=== PATIENT | male | born 1950 | race Caucasian/White ===

== ENCOUNTER 2020-12-23 11:46 | Emergency (ER) | payer SELFPAY ==
[2020-12-23] VITALS (13 sets, daily range): BP systolic 120–161; BP diastolic 68–90; PULSE 64–87; RESP 11–37; TEMP 36.3; O2SAT 95–100; BMI 20.1
[2020-12-23 12:28] LABS: Add Manual Diff / Slide Review NO; Basophils Absolute Auto 100 /uL (0-100); Basophils Percent Auto 1.2 % (0-2); Eosinophils Absolute Auto 400 /uL (0-450); Eosinophils Percent Auto 4.1 % (2-4); Hematocrit 43.3 % (41-53); Hemoglobin 14.7 g/dL (13.5-17.5); Lymphocytes Absolute Auto 3100 /uL (1100-4500); Lymphocytes Percent Auto 33.7 % (25-40); Mean Corpuscular HGB Conc 33.9 % (30-36); Mean Corpuscular Hemoglobin 31.8 PG (26-34); Mean Corpuscular Volume 93.8 fL (80-100); Monocytes Absolute Auto 600 /uL (0-900); Monocytes Percent Auto 6.3 % (3-14); Neutrophils Absolute Auto 5100 /uL (1500-7000); Neutrophils Percent Auto 54.7 % (50-75); Platelet Count 319 X10^3/uL (150-400); Red Blood Cell Count 4.62 X10^6/uL (4.5-5.9); Red Cell Distribution Width 13.6 % (11.6-14.8); White Blood Cell Count 9.3 X10^3/uL (4.5-11.0)
[2020-12-23 12:52] LABS: Lactate (Lactic Acid) 1.4 mmol/L (0.7-2.1)
[2020-12-23 12:53] LABS: Alanine Aminotransferase 21 IU/L (<50); Albumin 4.1 g/dL (3.5-5.0); Albumin Globulin Ratio 1.3 (1.0-2.8); Alkaline Phosphatase 123 U/L (38-126); Aspartate Aminotransferase 41 IU/L (17-59); BUN Creatinine Ratio 20.5 (6-22); Bilirubin Total 0.7 mg/dL (0.2-1.3); Blood Urea Nitrogen 16 mg/dL (9-20); Calcium 9.1 mg/dL (8.4-10.2); Carbon Dioxide 26 mmol/L (22-32); Chloride 110 mmol/L (98-107); Estimated Glomerular Filt Rate > 60.0 mL/min (>60); Globulin 3.1 g/dL (1.7-4.1); Glucose 88 mg/dL (80-110); HEMOLYSIS < 15 (0-50); Lipase 91 U/L (23-300); Potassium 4.1 mmol/L (3.4-5.1); Sodium 140 mmol/L (137-145); Total Protein 7.2 g/dL (6.3-8.2)
--- NOTE | 2020-12-23 12:53 | DI.CT.S_ITS ---
PROCEDURE: CT ABDOMEN PELVIS W CON INDICATIONS: RLQ pain, R scrotal swelling TECHNIQUE: After the administration of intravenous contrast, axial sections acquired from the lung bases to the pubic symphysis. Coronal and sagittal reformats were performed. For radiation dose reduction, the following was used: automated exposure control, adjustment of mA and/or kV according to patient size. COMPARISON: None. FINDINGS: Image quality: Excellent. Lung bases: Unremarkable. Heart: No significant findings. ABDOMEN: Liver: Unremarkable. Gallbladder: Unremarkable. Biliary ducts: Unremarkable. Pancreas: Unremarkable. Spleen: Unremarkable. Adrenal Glands: Unremarkable. Kidneys and Ureters: Unremarkable. Stomach and Bowel: Portions of the colon are underdistended. Normal appendix. No signs of small bowel obstruction. A loop of small bowel in the right lower quadrant partially extends into a right inguinal hernia. Peritoneum: No abnormal intraperitoneal fluid. No free air. Ventral Wall: No hernias. Abdominal Nodes: No retroperitoneal or mesenteric adenopathy by size criteria. Vessels: Aorta and inferior vena cava are normal in size. PELVIS: Pelvic Organs: Unremarkable. Bladder: Unremarkable. Pelvic Nodes: No enlarged lymph nodes. Miscellaneous: There is a small left inguinal hernia. A large right inguinal hernia is seen measuring approximately 6.7 x 5.3 x 13.8 cm, which predominantly contains fat as well as a single loop of small bowel without signs of bowel obstruction. The hernia extends into the right scrotum. There is a small right scrotal hydrocele. Bones: There is narrowing of the ischial femoral distances bilaterally, which may predispose to ischial femoral impingement. However, no fatty infiltration of the quadratus femoris muscle is seen. Degenerative changes are seen in the included spine. There is grade 1-2 anterolisthesis of L5 on S1 secondary to bilateral spondylolysis of L5. IMPRESSION: 1. Large right inguinal hernia is seen extending into the right scrotum, which predominantly contains peritoneal fat although a single loop of small bowel partially extends into the abdominal wall defect. No signs of small bowel obstruction. 2. Small fat containing left inguinal hernia. 3. 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 Dictated by: Shay Saucedo M.D. on 12/23/2020 at 13:20 Approved by: Shay Saucedo M.D. on 12/23/2020 at 13:28
--- NOTE | 2020-12-23 12:57 | DI.US.S_ITS ---
PROCEDURE: US SCROTUM INDICATIONS: RIGHT SCROTAL SWELLING, PAIN TECHNIQUE: Real-time scanning was performed of the scrotum and testicles, with image documentation. Color and pulse Doppler interrogation was performed of both testicles. COMPARISON: [facility], CT, CT ABDOMEN PELVIS W CON, 12/23/2020, 13:11. FINDINGS: Right: Testicle is normal in size at 4.5 x 2.2 x 4.3 cm, and homogenous in echotexture. Epididymis is normal in overall size and morphology. No hydrocele or varicoceles. Overlying scrotal skin is normal in thickness. Left: Testicle is normal in size at 4.8 x 2.3 x 2.5 cm, and homogeneous in echotexture. Epididymis is normal in overall size and morphology. No hydrocele or varicoceles. Overlying scrotal skin is normal in thickness. Doppler: Color and pulse Doppler demonstrate normal and symmetric arterial flow in both testicles. A prominent fat containing hernia is seen on the right side. IMPRESSION: Normal appearing testicles, with normal appearing vascularity. Prominent fat containing right inguinal hernia, as seen on the prior CT. Dictated by: Ton Prakash M.D. on 12/23/2020 at 12:50 Approved by: Ton Prakash M.D. on 12/23/2020 at 12:51
[2020-12-23] MEDS: MORPHINE 4 MG/ML INJ IV ×2 (12:58→17:02)
[2020-12-23] MEDS: ONDANSETRON 4 MG/2 ML INJ IV (12:59)
--- NOTE | 2020-12-23 13:18 | ED_ITS ---
HPI - Abdominal Pain <Jo Ann Jones PA-C - Last Filed: 12/23/20 17:31> General Chief Complaint: Abdominal Pain Stated Complaint: Severe abdom pain, hernia related. Time Seen by Provider: 12/23/20 12:24 Source: patient Mode of arrival: Ambulatory Limitations: no limitations History of Present Illness HPI narrative: 70-year-old male with no reported past medical history presents to the ED with 4 months of right lower abdominal pain. Patient reports that the pain has worsened over the last 2 weeks. Patient endorses a lump in the right lower quadrant of his abdomen and right-sided scrotal swelling. Patient endorses significant nausea, chills, abdominal pain, groin pain, bloody diarrhea, shortness of breath, lightheadedness, fatigue. Patient also endorses 30 lb unintentional weight loss over the last 3-4 months. Patient endorses eating and drinking normally with no changes to diet or activity. Patient denies fever, chest pain, cough, vomiting, dysuria, urgency, frequency, syncope. Patient reports that he has not seen a doctor in several years, has only seen a doctor 2 times in the last 50 years. Patient also endorses taking for aspirin pills daily until 3 months ago for his a fever, which he has been taking since age 10. Patient states that he does lift a lot a heavy weights as part of his work, which seems to have exacerbated his symptoms. Patient is a daily smoker for the past several years. Related Data Home Medications Medication Instructions Recorded Confirmed No Known Home Medications 12/23/20 12/23/20 Allergies Allergy/AdvReac Type Severity Reaction Status Date / Time No Known Drug Allergies Allergy Verified 12/23/20 12:11 Review of Systems <Jo Ann Jones PA-C - Last Filed: 12/23/20 17:31> Constitutional Constitutional: Reports chills, Reports fatigue, Denies fever(s), Denies frequent falls, Denies lethargy, Denies weakness and Reports weight loss Comments: 30 lb unintentional weight loss in the last 3-4 months Eyes Eyes: Denies change in vision, Denies eye discharge, Denies irritation and Denies loss of vision ENT Ears, Nose, Mouth, and Throat: Denies change in voice, Denies dizziness, Denies neck pain, Denies sore throat and Denies throat swelling Cardiovascular Cardiovascular: Denies chest pain, Denies irregular heart rhythm, Reports lightheadedness, Denies palpitations, Reports dyspnea, Denies dyspnea on exertion and Denies orthopnea Respiratory Respiratory: Denies cough, Reports dyspnea, Denies dyspnea on exertion and Denies wheezing Gastrointestinal Gastrointestinal: Reports abdominal pain, Reports hematochezia, Denies change in bowel habits, Reports diarrhea, Reports nausea and Denies vomiting Genitourinary Genitourinary: Denies dysuria, Reports scrotal swelling, Denies urinary frequency, Denies urinary hesitancy, Denies urinary incontinence and Denies urinary urgency Musculoskeletal Musculoskeletal: Denies neck pain and Denies numbness Integumentary/Breasts Skin/Breast: Denies pruritus, Denies erythema, Denies rash and Denies wounds Neurologic Neurologic: Denies behavioral changes, Denies confusion, Denies dizziness, D enies frequent falls, Denies loss of vision, Denies numbness and Denies weakness Psychiatric Psychiatric: Denies anxiety, Denies behavioral changes, Denies confusion, Denies depression, Denies homicidal ideation and Denies suicidal ideation Endocrine Endocrine: Reports fatigue, Denies flushing and Denies palpitations Hematologic/Lymphatic Hematologic/Lymphatic: Denies easy bruising Allergic/Immunologic Allergic/Immunologic: Denies urticaria, Denies throat swelling and Denies wheezing Patient History <Jo Ann Jones PA-C - Last Filed: 12/23/20 17:31> Social History Smoking Status: Current every day smoker Smoking Status: Current every day smoker alcohol intake frequency: 3 or more drinks per day Substance Use Type: marijuana Exam <Jo Ann Jones PA-C - Last Filed: 12/23/20 17:31> Initial Vital Signs Initial Vital Signs: Vital Signs Temperature 97.4 F L 12/23/20 12:05 Pulse Rate 87 12/23/20 12:05 Respiratory Rate 18 12/23/20 12:05 Blood Pressure 161/88 H 12/23/20 12:05 Pulse Oximetry 100 12/23/20 12:05 Const General: cooperative Nutritional Appearance: cachectic and underweight Other: Cachectic appearing HENMT Head: normocephalic and atraumatic Ears: external ears normal and TM's normal bilaterally Nose: external nose normal and No nasal discharge Face and sinus: sinuses nontender, face symmetric, no sinus tenderness and No dry mucous membranes Mouth: oral mucosae normal and moist mucous membranes Teeth and gingiva: dentition normal Throat: tonsils normal and uvula midline Eyes General: appearance normal, both eyes and all related structures Eyelids: eyelids normal Conjunctivae: conjunctivae normal Sclera: sclerae normal Pupils: PERRL EOM: EOM intact bilaterally Neck Neck: normal visual inspection, trachea midline, No lymphadenopathy, No midline deformity and No JVD Lymphatic: No lymphedema Chest Chest: normal inspection of the chest Resp Effort & Inspection: normal respiratory effort, able to speak in complete sen tences, no respiratory distress and no use of accessory muscles Auscultation: clear to auscultation bilaterally, no rales, no rhonchi and no wheezes Cardio Rate: regular rate Rhythm: regular rhythm Heart Sounds: no click, no gallops, no murmurs and no rubs Pulses: normal peripheral pulses GI Inspection: non-distended Palpation: soft, no hepatosplenomegaly, No guarding, No pulsatile mass and No tender Auscultation: normal bowel sounds Other: Right lower quadrant tender to palpation. Right-sided scrotal swelling, consistent with inguinal hernia. Back/Spine/Pelvis Back: No CVA tenderness Cervical Spine: cervical ROM normal and No pain with cervical ROM Thoracic/Lumbar Spine: thoracic and lumbar spine normal to inspection Skin General: no rashes or lesions noted, No jaundice and No petechiae Neuro General: patient alert, patient oriented x3, gait normal and no focal motor deficits Speech: speech normal Extrem General: full ROM, no clubbing, cyanosis or edema, no pedal edema and no calf tenderness Psych Appearance: well kempt Mental Status: mental status grossly normal Attitude: cooperative Thought Content: normal and suicidality Judgment: judgment good <Carson Mireles DO - Last Filed: 12/23/20 17:34> Initial Vital Signs Initial Vital Signs: Vital Signs Temperature 97.4 F L 12/23/20 12:05 Pulse Rate 87 12/23/20 12:05 Respiratory Rate 18 12/23/20 12:05 Blood Pressure 161/88 H 12/23/20 12:05 Pulse Oximetry 100 12/23/20 12:05 Procedures <Jo Ann Jones PA-C - Last Filed: 12/23/20 17:31> [facility] Procedure Name of Procedure: Hernia reduction Side (if applicable): right Location: Inguinal hernia Technique/Description of procedure performed: Manual reduction attempted following icing, Trendelenburg positioning, morphine and Ativan for pain control. The hernia was not successfully reduced. Patient tolerated the procedure well. Patient tolerated procedure: Well Additional Comments: Surgeon Dr. Mujica was consulted. Course <Jo Ann Jones PA-C - Last Filed: 12/23/20 17:31> Course Course Narrative: Patient's CT abdomen pelvis shows evidence of a large right- sided non strangulated, non incarcerated, fat containing, hernia. Patient was given morphine, Ativan for pain control, set in the Trendelenburg position with eyes. Hernia reduction was attempted, however unsuccessful at reducing the hernia. Patient tolerated the procedure well. Surgeon Dr. Mujica was consulted, who recommends discharging home with pain control, outpatient appointment with [facility] for follow-up elective surgery. Will discharge home with ED return precautions. Orders Ordered: ED Orders 12/23/20 12:12 EKG-12 Lead Stat 12/23/20 12:20 Complete Blood Count AUTO DIFF Stat Comprehensive Metabolic Panel Stat Lactate (Lactic Acid) Stat Lipase Stat NT-proBNP (BNP-Adult 18+) Stat Troponin & CK Cardiac Panel Stat Type and Screen Stat 12/23/20 12:53 CT abdomen pelvis w con Stat 12/23/20 12:57 US scrotum Stat 12/23/20 14:06 CT chest w con Stat Discontinued Medications Lorazepam (Lorazepam 2 Mg/Ml Inj) 1 mg IV NOW ONE Stop: 12/23/20 16:08 Last Admin: 12/23/20 16:16 Dose: 1 mg Documented by: RENATE Morphine Sulfate (Morphine 4 Mg/Ml Inj) 4 mg IV NOW ONE Stop: 12/23/20 12:52 Last Admin: 12/23/20 12:58 Dose: 4 mg Documented by: RENATE Morphine Sulfate (Morphine 4 Mg/Ml Inj) 4 mg IV NOW ONE Stop: 12/23/20 16:43 Last Admin: 12/23/20 17:02 Dose: 4 mg Documented by: RENATE Ondansetron HCl (Ondansetron 4 Mg/2 Ml Inj) 4 mg IV NOW ONE Stop: 12/23/20 12:52 Last Admin: 12/23/20 12:59 Dose: 4 mg Documented by: RENATE Vital Signs Vital signs: Vital Signs - 8 hr 12/23/20 12:05 12/23/20 13:04 12/23/20 13:18 Temperature 97.4 F L Pulse Rate 87 78 81 Respiratory Rate 18 30 H 22 Blood Pressure 161/88 H 133/82 Pulse Oximetry 100 97 98 12/23/20 13:30 12/23/20 14:00 12/23/20 14:01 Temperature Pulse Rate 74 78 72 Respiratory Rate 35 H 24 33 H Blood Pressure 120/68 128/84 Pulse Oximetry 97 98 97 12/23/20 14:29 12/23/20 14:30 12/23/20 15:00 Temperature Pulse Rate 78 68 72 Respiratory Rate 23 11 L 17 Blood Pressure 137/82 135/80 141/83 H Pulse Oximetry 98 99 98 12/23/20 15:30 12/23/20 16:00 12/23/20 16:30 Temperature Pulse Rate 72 64 80 Respiratory Rate 32 H 37 H 22 Blood Pressure 143/90 H 131/83 142/89 H Pulse Oximetry 99 100 98 12/23/20 17:00 Temperature Pulse Rate 86 Respiratory Rate 24 Blood Pressure 132/83 Pulse Oximetry 95 <Carson Mireles, DO - Last Filed: 12/23/20 17:34> Orders Ordered: ED Orders 12/23/20 12:12 EKG-12 Lead Stat 12/23/20 12:20 Complete Blood Count AUTO DIFF Stat Comprehensive Metabolic Panel Stat Lactate (Lactic Acid) Stat Lipase Stat NT-proBNP (BNP-Adult 18+) Stat Troponin & CK Cardiac Panel Stat Type and Screen Stat 12/23/20 12:53 CT abdomen pelvis w con Stat 12/23/20 12:57 US scrotum Stat 12/23/20 14:06 CT chest w con Stat Discontinued Medications Lorazepam (Lorazepam 2 Mg/Ml Inj) 1 mg IV NOW ONE Stop: 12/23/20 16:08 Last Admin: 12/23/20 16:16 Dose: 1 mg Documented by: RENATE Morphine Sulfate (Morphine 4 Mg/Ml Inj) 4 mg IV NOW ONE Stop: 12/23/20 12:52 Last Admin: 12/23/20 12:58 Dose: 4 mg Documented by: RENATE Morphine Sulfate (Morphine 4 Mg/Ml Inj) 4 mg IV NOW ONE Stop: 12/23/20 16:43 Last Admin: 12/23/20 17:02 Dose: 4 mg Documented by: RENATE Ondansetron HCl (Ondansetron 4 Mg/2 Ml Inj) 4 mg IV NOW ONE Stop: 12/23/20 12:52 Last Admin: 12/23/20 12:59 Dose: 4 mg Documented by: RENATE Vital Signs Vital signs: Vital Signs - 8 hr 12/23/20 12:05 12/23/20 13:04 12/23/20 13:18 Temperature 97.4 F L Pulse Rate 87 78 81 Respiratory Rate 18 30 H 22 Blood Pressure 161/88 H 133/82 Pulse Oximetry 100 97 98 12/23/20 13:30 12/23/20 14:00 12/23/20 14:01 Temperature Pulse Rate 74 78 72 Respiratory Rate 35 H 24 33 H Blood Pressure 120/68 128/84 Pulse Oximetry 97 98 97 12/23/20 14:29 12/23/20 14:30 12/23/20 15:00 Temperature Pulse Rate 78 68 72 Respiratory Rate 23 11 L 17 Blood Pressure 137/82 135/80 141/83 H Pulse Oximetry 98 99 98 12/23/20 15:30 12/23/20 16:00 12/23/20 16:30 Temperature Pulse Rate 72 64 80 Respiratory Rate 32 H 37 H 22 Blood Pressure 143/90 H 131/83 142/89 H Pulse Oximetry 99 100 98 12/23/20 17:00 Temperature Pulse Rate 86 Respiratory Rate 24 Blood Pressure 132/83 Pulse Oximetry 95 MDM - Abdominal Pain <Jo Ann Jones PA-C - Last Filed: 12/23/20 17:31> Lab Data Lab results narrative: Labs within normal limits Result diagrams: 12/23/20 12:20 12/23/20 12:20 Labs: Lab Results 12/23/20 12/23/20 12/23/20 Range/Units 12:20 12:20 12:20 WBC 9.3 (4.5-11.0) X10^3/uL RBC 4.62 (4.5-5.9) X10^6/uL Hgb 14.7 (13.5-17.5) g/dL Hct 43.3 (41-53) % MCV 93.8 (80-100) fL MCH 31.8 (26-34) PG MCHC 33.9 (30-36) % RDW 13.6 (11.6-14.8) % Plt Count 319 (150-400) X10^3/uL Neut % (Auto) 54.7 (50-75) % Lymph % (Auto) 33.7 (25-40) % [place] % (Auto) 6.3 (3-14) % Eos % (Auto) 4.1 H (2-4) % Baso % (Auto) 1.2 (0-2) % Neut # (Auto) 5100 (0299-7933) /uL Lymph # (Auto) 3100 (9820-6951) /uL [place] # (Auto) 600 (0-900) /uL Eos # (Auto) 400 (0-450) /uL Baso # (Auto) 100 (0-100) /uL Sodium 140 (137-145) mmol/L Potassium 4.1 (3.4-5.1) mmol/L Chloride 110 H (98-107) mmol/L Carbon Dioxide 26 (22-32) mmol/L BUN 16 (9-20) mg/dL Creatinine 0.78 (0.66-1.25) mg/dL Estimated GFR > 60.0 (>60) mL/min BUN/Creatinine Ratio 20.5 (6-22) Glucose 88 (80-110) mg/dL Lactate 1.4 (0.7-2.1) mmol/L Calcium 9.1 (8.4-10.2) mg/dL Total Bilirubin 0.7 (0.2-1.3) mg/dL AST 41 (17-59) IU/L ALT 21 (<50) IU/L Alkaline Phosphatase 123 (38-126) U/L Total Creatine Kinase (55-170) U/L CK-MB (CK-2) CK-MB (CK-2) Rel Index Troponin I (0.01-0.034) ng/mL NT-Pro-B Natriuret Pep (<125) pg/mL Total Protein 7.2 (6.3-8.2) g/dL Albumin 4.1 (3.5-5.0) g/dL Globulin 3.1 (1.7-4.1) g/dL Albumin/Globulin Ratio 1.3 (1.0-2.8) Lipase 91 (23-300) U/L Blood Type Antibody Screen 12/23/20 12/23/20 Range/Units 12:20 12:20 WBC (4.5-11.0) X10^3/uL RBC (4.5-5.9) X10^6/uL Hgb (13.5-17.5) g/dL Hct (41-53) % MCV (80-100) fL MCH (26-34) PG MCHC (30-36) % RDW (11.6-14.8) % Plt Count (150-400) X10^3/uL Neut % (Auto) (50-75) % Lymph % (Auto) (25-40) % [place] % (Auto) (3-14) % Eos % (Auto) (2-4) % Baso % (Auto) (0-2) % Neut # (Auto) (2912-5883) /uL Lymph # (Auto) (5764-4655) /uL [place] # (Auto) (0-900) /uL Eos # (Auto) (0-450) /uL Baso # (Auto) (0-100) /uL Sodium (137-145) mmol/L Potassium (3.4-5.1) mmol/L Chloride (98-107) mmol/L Carbon Dioxide (22-32) mmol/L BUN (9-20) mg/dL Creatinine (0.66-1.25) mg/dL Estimated GFR (>60) mL/min BUN/Creatinine Ratio (6-22) Glucose (80-110) mg/dL Lactate (0.7-2.1) mmol/L Calcium (8.4-10.2) mg/dL Total Bilirubin (0.2-1.3) mg/dL AST (17-59) IU/L ALT (<50) IU/L Alkaline Phosphatase (38-126) U/L Total Creatine Kinase 96 (55-170) U/L CK-MB (CK-2) TNP CK-MB (CK-2) Rel Index TNP Troponin I < 0.012 (0.01-0.034) ng/mL NT-Pro-B Natriuret Pep 49 (<125) pg/mL Total Protein (6.3-8.2) g/dL Albumin (3.5-5.0) g/dL Globulin (1.7-4.1) g/dL Albumin/Globulin Ratio (1.0-2.8) Lipase (23-300) U/L Blood Type O Negative Antibody Screen Negative Point of care testing: Urine Dip Bedside Urine Glucose Negative Bedside Urine Bilirubin - Negative Bedside Urine Ketone - Negative Urine Specific Mary D 1.010 Bedside Urine Occult Blood - Negative Bedside Urine pH 6.0 Bedside Urine Protein - Negative Bedside Urine Urobilinogen - Negative Bedside Urine Nitrite - Negative Bedside Urine Leukocytes - Negative Esterase Imaging Data CT scan - abdomen/pelvis: Radiologist's Impression: PROCEDURE:? CT ABDOMEN PELVIS W CON ? INDICATIONS:? RLQ pain, R scrotal swelling ? TECHNIQUE:? After the administration of intravenous contrast, axial sections acquired from the lung bases to the pubic symphysis.? Coronal and sagittal reformats were performed.? For radiation dose reduction, the following was used:? automated exposure control, adjustment of mA and/or kV according to patient size.? ? COMPARISON:? None. ? FINDINGS:? Image quality:? Excellent.? ? Lung bases:? Unremarkable. Heart:? No significant findings. ? ABDOMEN: Liver:? Unremarkable.? ? Gallbladder:? Unremarkable. Biliary ducts:? Unremarkable.? ? Pancreas:? Unremarkable.? ? Spleen:? Unremarkable.? ? Adrenal Glands:? Unremarkable.? ? Kidneys and Ureters:? Unremarkable.? ? ? Stomach and Bowel:? Portions of the colon are underdistended.? Normal appendix.? No signs of small bowel obstruction.? A loop of small bowel in the right lower quadrant partially extends into a right inguinal hernia.? Peritoneum:? No abnormal intraperitoneal fluid.? No free air.? ? Ventral Wall: ? No hernias.? Abdominal Nodes:? No retroperitoneal or mesenteric adenopathy by size criteria.? Vessels:? Aorta and inferior vena cava are normal in size.? ? PELVIS: Pelvic Organs:? Unremarkable.? ? Bladder:? Unremarkable.? ? Pelvic Nodes: No enlarged lymph nodes.? Miscellaneous:? There is a small left inguinal hernia.? A large right inguinal hernia is seen measuring approximately 6.7 x 5.3 x 13.8 cm, which predominantly contains fat as well as a single loop of small bowel without signs of bowel obstruction.? The hernia extends into the right scrotum.? There is a small right scrotal hydrocele. ? Bones:? There is narrowing of the ischial femoral distances bilaterally, which may predispose to ischial femoral impingement.? However, no fatty infiltration of the quadratus femoris muscle is seen.? Degenerative changes are seen in the included spine.? There is grade 1-2 anterolisthesis of L5 on S1 secondary to bilateral spondylolysis of L5. ? IMPRESSION:? 1. Large right inguinal hernia is seen extending into the right scrotum, which predominantly contains peritoneal fat although a single loop of small bowel partially extends into the abdominal wall defect.? No signs of small bowel obstruction. ? 2. Small fat containing left inguinal hernia. ? 3. 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 ? ? Dictated by: Shay Saucedo M.D. on 12/23/2020 at 13:20 ? ? Approved by: Shay Saucedo M.D. on 12/23/2020 at 13:28 ? US Scrotum: Radiologist's Impression: PROCEDURE:? US SCROTUM ? INDICATIONS:? RIGHT SCROTAL SWELLING, PAIN ? TECHNIQUE:? Real-time scanning was performed of the scrotum and testicles, with image documentation.? Color and pulse Doppler interrogation was performed of both testicles.? ? COMPARISON:? [facility], CT, CT ABDOMEN PELVIS W CON, 12/23/2020, 13:11. ? FINDINGS:? ? Right:? Testicle is normal in size at 4.5 x 2.2 x 4.3 cm, and homogenous in echotexture.? Epididymis is normal in overall size and morphology.? No hydrocele or varicoceles.? Overlying scrotal skin is normal in thickness.? ? Left:? Testicle is normal in size at 4.8 x 2.3 x 2.5 cm, and homogeneous in echotexture.? Epididymis is normal in overall size and morphology.? No hydrocele or varicoceles.? Overlying scrotal skin is normal in thickness.? ? Doppler:? Color and pulse Doppler demonstrate normal and symmetric arterial flow in both testicles.? ? A prominent fat containing hernia is seen on the right side. ? ? IMPRESSION:? Normal appearing testicles, with normal appearing vascularity. ? Prominent fat containing right inguinal hernia, as seen on the prior CT. ? ? Dictated by: Ton Prakash M.D. on 12/23/2020 at 12:50 ? ? Approved by: Ton Prakash M.D. on 12/23/2020 at 12:51 ? CT scan - chest: Radiologist's Impression: PROCEDURE:? CT CHEST W CON ? INDICATIONS:? SOB, 30 lb weght loss, smoker ? TECHNIQUE:? After the administration of intravenous contrast, 5 mm thick sections acquired from the pulmonary apices to the posterior costophrenic angles.? 1 mm axial lung, 5 mm thick coronal and sagittal reformats and 7 mm axial MIP were acquired.? For radiation dose reduction, the following was used:? automated exposure control, adjustment of mA and/or kV according to patient size.? ? COMPARISON:? [facility], CT, CT ABDOMEN PELVIS W CON, 12/23/2020, 13:11. ? FINDINGS:? Image quality:? Excellent.? ? Lungs and pleura:? 2 mm pulmonary nodule, right lower lobe, image 180/3.? No suspicious pulmonary nodules.? No acute air space opacities.? No pleural effusions or pneumothorax.? Central and peripheral airways are patent and normal in caliber.? ? Mediastinum:? Heart size is normal.? No pericardial effusion.? No mediastinal or hilar adenopathy by size criteria.? Thoracic aorta and central pulmonary arteries are normal in size.? Esophagus is normal in caliber.? No hiatal hernia.? ? Bones and chest wall:? No suspicious bony lesions.? No vertebral body yehuda nicole fractures.? No axillary or supraclavicular adenopathy by size criteria.? Thyroid gland is unremarkable as visualized .? ? Abdomen:? Visualized upper abdominal solid organs appear normal.? Upper a bdominal bowel loops are normal in caliber.? ? IMPRESSION:? ? 1. Incidental 2 mm right lower lobe pulmonary nodule. ? 2. No findings suspicious for pulmonary malignancy. ? 3. No evidence of acute pulmonary process. ? Comment:? Consider yearly screening lung CT if the patient has significant risk factors for pulmonary malignancy. ? ? Dictated by: Ector Mckenzie M.D. on 12/23/2020 at 14:31 ? ? Approved by: Ector Mckenzie M.D. on 12/23/2020 at 14:35? ECG Data Interpretation: NSR, no axis deviation, no ST-T MDM Narrative Medical decision making narrative: 70-year-old male with no reported past medical history presents to the ED with 4 months of right lower abdominal pain. Concern for incarcerated versus strangulated hernia versus peritonitis versus obstruction versus abdominal mass versus malignancy versus testicular torsion versus epididymitis. Will order labs, chest x-ray, EKG, troponin, lactate, CT abdomen pelvis, ultrasound of the scrotum. Will give Zofran, morphine for symptoms will reassess. <Carson Mireles DO - Last Filed: 12/23/20 17:34> Lab Data Labs: Lab Results 12/23/20 12/23/20 12/23/20 Range/Units 12:20 12:20 12:20 WBC 9.3 (4.5-11.0) X10^3/uL RBC 4.62 (4.5-5.9) X10^6/uL Hgb 14.7 (13.5-17.5) g/dL Hct 43.3 (41-53) % MCV 93.8 (80-100) fL MCH 31.8 (26-34) PG MCHC 33.9 (30-36) % RDW 13.6 (11.6-14.8) % Plt Count 319 (150-400) X10^3/uL Neut % (Auto) 54.7 (50-75) % Lymph % (Auto) 33.7 (25-40) % [place] % (Auto) 6.3 (3-14) % Eos % (Auto) 4.1 H (2-4) % Baso % (Auto) 1.2 (0-2) % Neut # (Auto) 5100 (1752-1220) /uL Lymph # (Auto) 3100 (0424-6616) /uL [place] # (Auto) 600 (0-900) /uL Eos # (Auto) 400 (0-450) /uL Baso # (Auto) 100 (0-100) /uL Sodium 140 (137-145) mmol/L Potassium 4.1 (3.4-5.1) mmol/L Chloride 110 H (98-107) mmol/L Carbon Dioxide 26 (22-32) mmol/L BUN 16 (9-20) mg/dL Creatinine 0.78 (0.66-1.25) mg/dL Estimated GFR > 60.0 (>60) mL/min BUN/Creatinine Ratio 20.5 (6-22) Glucose 88 (80-110) mg/dL Lactate 1.4 (0.7-2.1) mmol/L Calcium 9.1 (8.4-10.2) mg/dL Total Bilirubin 0.7 (0.2-1.3) mg/dL AST 41 (17-59) IU/L ALT 21 (<50) IU/L Alkaline Phosphatase 123 (38-126) U/L Total Creatine Kinase (55-170) U/L CK-MB (CK-2) CK-MB (CK-2) Rel Index Troponin I (0.01-0.034) ng/mL NT-Pro-B Natriuret Pep (<125) pg/mL Total Protein 7.2 (6.3-8.2) g/dL Albumin 4.1 (3.5-5.0) g/dL Globulin 3.1 (1.7-4.1) g/dL Albumin/Globulin Ratio 1.3 (1.0-2.8) Lipase 91 (23-300) U/L Blood Type Antibody Screen 12/23/20 12/23/20 Range/Units 12:20 12:20 WBC (4.5-11.0) X10^3/uL RBC (4.5-5.9) X10^6/uL Hgb (13.5-17.5) g/dL Hct (41-53) % MCV (80-100) fL MCH (26-34) PG MCHC (30-36) % RDW (11.6-14.8) % Plt Count (150-400) X10^3/uL Neut % (Auto) (50-75) % Lymph % (Auto) (25-40) % [place] % (Auto) (3-14) % Eos % (Auto) (2-4) % Baso % (Auto) (0-2) % Neut # (Auto) (8267-3925) /uL Lymph # (Auto) (4033-9686) /uL [place] # (Auto) (0-900) /uL Eos # (Auto) (0-450) /uL Baso # (Auto) (0-100) /uL Sodium (137-145) mmol/L Potassium (3.4-5.1) mmol/L Chloride (98-107) mmol/L Carbon Dioxide (22-32) mmol/L BUN (9-20) mg/dL Creatinine (0.66-1.25) mg/dL Estimated GFR (>60) mL/min BUN/Creatinine Ratio (6-22) Glucose (80-110) mg/dL Lactate (0.7-2.1) mmol/L Calcium (8.4-10.2) mg/dL Total Bilirubin (0.2-1.3) mg/dL AST (17-59) IU/L ALT (<50) IU/L Alkaline Phosphatase (38-126) U/L Total Creatine Kinase 96 (55-170) U/L CK-MB (CK-2) TNP CK-MB (CK-2) Rel Index TNP Troponin I < 0.012 (0.01-0.034) ng/mL NT-Pro-B Natriuret Pep 49 (<125) pg/mL Total Protein (6.3-8.2) g/dL Albumin (3.5-5.0) g/dL Globulin (1.7-4.1) g/dL Albumin/Globulin Ratio (1.0-2.8) Lipase (23-300) U/L Blood Type O Negative Antibody Screen Negative Point of care testing: Urine Dip Bedside Urine Glucose Negative Bedside Urine Bilirubin - Negative Bedside Urine Ketone - Negative Urine Specific Mary D 1.010 Bedside Urine Occult Blood - Negative Bedside Urine pH 6.0 Bedside Urine Protein - Negative Bedside Urine Urobilinogen - Negative Bedside Urine Nitrite - Negative Bedside Urine Leukocytes - Negative Esterase Discharge Plan Departure Patient Disposition: Home Clinical Impression: Inguinal hernia Qualifiers: Obstruction and gangrene presence: without obstruction or gangrene Laterality: unilateral Recurrence: recurrent Qualified Code(s): K40.91 - Unilateral inguinal hernia, without obstruction or gangrene, recurrent Instructions: Groin Hernia -- Adult Activity Restrictions/Additional Instructions: You were evaluated in the ED today for right-sided lower abdominal pain and swelling. Your ultrasound and CT abdomen pelvis showed a large inguinal hernia, which is causing your symptoms. Given that we were unable to reduce it in the ED today, we consulted surgeon Dr. Mujica with [facility], who recommends an elective hernia repair. Please contact [facility] at [phone] to schedule an appointment to be evaluated by surgeon. You may take ibuprofen 800 mg 3 times a day, alternating with 1000 mg of Tylenol 3 times a day. Please do not exceed 3000 mg of Tylenol in 1 day. Please take the ibuprofen with food to avoid upset stomach. Return to the ED if your symptoms worsen, you develop vomiting, fever, chills, worsening pain. Prescriptions: No Action No Known Home Medications RF: 0 Referrals: Theresa Arevalo ARNP [Primary Care Provider] - <Carson Mireles DO - Last Filed: 12/23/20 17:34> Cosign ED Attending Cosignature Attestation: Dr Mireles Co-Sign Statement: I was available for consultation during this patient's emergency department visit. This chart is signed by myself for administrative purposes only. I did not have direct contact with this patient during this visit. They were seen independently by the APC.
[2020-12-23 13:32] LABS: Creatine Kinase 96 U/L (55-170)
[2020-12-23 13:44] LABS: NT-proBNP (BNP-Adult 18+) 49 pg/mL (<125); Troponin I < 0.012 ng/mL (0.01-0.034)
--- NOTE | 2020-12-23 14:06 | DI.CT.S_ITS ---
PROCEDURE: CT CHEST W CON INDICATIONS: SOB, 30 lb weght loss, smoker TECHNIQUE: After the administration of intravenous contrast, 5 mm thick sections acquired from the pulmonary apices to the posterior costophrenic angles. 1 mm axial lung, 5 mm thick coronal and sagittal reformats and 7 mm axial MIP were acquired. For radiation dose reduction, the following was used: automated exposure control, adjustment of mA and/or kV according to patient size. COMPARISON: [facility], CT, CT ABDOMEN PELVIS W CON, 12/23/2020, 13:11. FINDINGS: Image quality: Excellent. Lungs and pleura: 2 mm pulmonary nodule, right lower lobe, image 180/3. No suspicious pulmonary nodules. No acute air space opacities. No pleural effusions or pneumothorax. Central and peripheral airways are patent and normal in caliber. Mediastinum: Heart size is normal. No pericardial effusion. No mediastinal or hilar adenopathy by size criteria. Thoracic aorta and central pulmonary arteries are normal in size. Esophagus is normal in caliber. No hiatal hernia. Bones and chest wall: No suspicious bony lesions. No vertebral body compression fractures. No axillary or supraclavicular adenopathy by size criteria. Thyroid gland is unremarkable as visualized . Abdomen: Visualized upper abdominal solid organs appear normal. Upper abdominal bowel loops are normal in caliber. IMPRESSION: 1. Incidental 2 mm right lower lobe pulmonary nodule. 2. No findings suspicious for pulmonary malignancy. 3. No evidence of acute pulmonary process. Comment: Consider yearly screening lung CT if the patient has significant risk factors for pulmonary malignancy. Dictated by: Ector Mckenzie M.D. on 12/23/2020 at 14:31 Approved by: Ector Mckenzie M.D. on 12/23/2020 at 14:35
[2020-12-23] MEDS: LORazepam 2 MG/ML INJ 1 MG IV (16:16)
== END 2020-12-23 17:21 | disposition home or self-care (01) ==
PROVIDERS: Emergency Medicine; Emergency Provider Student in an Organized Health Care Education/Training Program; PCP Nurse Practitioner Family
DX: K40.91 Unilateral inguinal hernia, without obstruction or gangrene, recurrent (principal); R11.0 Nausea; R63.4 Abnormal weight loss; R10.9 Unspecified abdominal pain
CPT/HCPCS: 36415; 71260; 74177; 76870; 80053; 81003; 82550; 83605; 83690; 83880; 84484; 85025; 86850; 86900; 86901; 93005; 93010; 96374; 96375; 96376; 99284; J2060; J2270; J2405; Q9967